=== PATIENT | female | born 1985 | race Caucasian/White ===

== ENCOUNTER 2020-12-22 07:08 | Inpatient (IN) | payer OTHER ==
[~2020-12-22] VITALS: Ht 167.6 cm; Wt 106.2 kg
[~2020-12-22 07:08] MED LIST: BUPIVACAINE/PF 0.5% ONE; EPINEPHRINE 1 MG/ML, 1ML ONE; GENTAMICIN 80 MG/2 ML ONE; THROMBIN 20,000 UNIT VIAL TP ONE; VANCOMYCIN 1,000 MG ONE
[2020-12-22 07:47] VITALS: BP 107/74
[2020-12-22] MEDS ORDERED: LACTATED RINGERS 1,000 ML IV SCH (08:00)
[2020-12-22] MEDS ORDERED: CHLORHEXIDINE 15 ML UDC PO ONE (08:00)
[2020-12-22] MEDS ORDERED: ARIP5TAB13 PO (08:22)
[2020-12-22] MEDS ORDERED: GABA600T7 PO (08:22)
[2020-12-22] MEDS ORDERED: MODA100T2 PO (08:22)
[2020-12-22] MEDS ORDERED: FENTANYL PF 250 MCG/5ML ONE ×2 (09:41→11:48)
[2020-12-22] MEDS ORDERED: MIDAZOLAM 1 MG/ML, 2ML ONE (09:41)
[2020-12-22] MEDS ORDERED: PROPOFOL 50 ML ONE ×4 (09:42→12:38)
[2020-12-22] MEDS ORDERED: OMNIPAQUE 180 MG/ML, 20ML VIAL ONE (10:29)
[2020-12-22] MEDS ORDERED: FENTANYL PF 100 MCG/2ML IV PRN (10:30)
[2020-12-22] MEDS ORDERED: ACETAMINOPHEN 325 MG TABLET PO PRN (10:30)
[2020-12-22] MEDS ORDERED: HALOPERIDOL 5 MG/ML IV PRN (10:30)
[2020-12-22] MEDS ORDERED: OXYcodone 5 MG/5 ML ORAL.SOL UDC PO PRN (10:30)
[2020-12-22] MEDS ORDERED: LABETALOL 5MG/ML, 20ML IV PRN (10:30)
[2020-12-22] MEDS ORDERED: HYDROmorphone 1 MG/ML, 1ML INJ IVPush PRN (10:30)
[2020-12-22] MEDS ORDERED: hydrALAzine 20 MG/ML, 1ML IV PRN (10:30)
[2020-12-22] MEDS ORDERED: PROMETHAZINE 25 MG/ML, 1ML IVPush PRN (10:30)
[2020-12-22] MEDS ORDERED: DIPHENHYDRAMINE 50 MG/ML, 1ML IVPush PRN ×2 (10:30→17:00)
[2020-12-22] MEDS ORDERED: MEPERIDINE/PF 25MG/0.5ML IVPush PRN (10:30)
[2020-12-22] MEDS ORDERED: BUPIVACAINE/PF 0.5% ONE (12:21)
[2020-12-22] MEDS ORDERED: EPINEPHRINE 1 MG/ML, 1ML ONE (12:21)
[2020-12-22] MEDS ORDERED: ONDANSETRON 2MG/ML, 2ML ONE (13:52)
[2020-12-22] MEDS ORDERED: SUCCINYLCHOLINE 20 MG/ML, 10ML ONE (13:52)
[2020-12-22] MEDS ORDERED: CEFAZOLIN 1,000 MG ONE (13:52)
[2020-12-22] MEDS ORDERED: GLYCOPYRROLATE 0.2MG/1ML, 5ML ONE (13:52)
[2020-12-22] MEDS ORDERED: DEXAMETHASONE 4 MG/ML, 1ML ONE (13:52)
[2020-12-22] MEDS ORDERED: PROPOFOL 10 MG/ML, 20ML ONE ×4 (13:52)
[2020-12-22] MEDS ORDERED: NEOSTIGMINE 1 MG/ML, 10ML ONE (13:52)
[2020-12-22] MEDS ORDERED: ROCURONIUM 10MG/ML,5ML ONE (13:52)
[2020-12-22] MEDS ORDERED: HYDROmorphone 2 MG/ML, 1ML ONE (13:55)
[2020-12-22] MEDS ORDERED: FENTANYL PF 100 MCG/2ML ONE (14:13)
[2020-12-22] MEDS ORDERED: ACETAMINOPHEN 650 MG/20.3 ML UDC ONE (14:14)
[2020-12-22] MEDS ORDERED: OXYcodone 5 MG/5 ML ORAL.SOL UDC ONE (14:14)
[2020-12-22] MEDS ORDERED: METHOCARBAMOL 1,000 MG in DEXTROSE 5% 100 ML IV PRN (15:00)
[2020-12-22] MEDS ORDERED: PHARMACY MAY ADJ FOR RENAL FX MC PRN (16:30)
[2020-12-22] MEDS ORDERED: morphine SULFATE 10 MG/ML, 1ML ONE (16:51)
[2020-12-22] MEDS: morphine SULFATE 10 MG/ML, 1ML IV PRN ×2 (16:53→20:41)
[2020-12-22] MEDS ORDERED: HYDROcodone/APAP 5/325 TABLET PO PRN (17:00)
[2020-12-22] MEDS ORDERED: DIPHENHYDRAMINE 25 MG CAPSULE PO PRN (17:00)
[2020-12-22] MEDS ORDERED: PROMETHAZINE 25 MG/ML, 1ML IM PRN (17:00)
[2020-12-22] MEDS ORDERED: ONDANSETRON 2MG/ML, 2ML IV PRN (17:00)
[2020-12-22] MEDS ORDERED: MAGNESIUM HYDROXIDE 8%, 30ML UDC PO PRN (17:00)
[2020-12-22] MEDS ORDERED: ACETAMINOPHEN 500 MG TABLET PO PRN (17:00)
[2020-12-22] MEDS ORDERED: BISACODYL 10 MG SUPP PR PRN (17:00)
[2020-12-22] MEDS ORDERED: DIPHENHYDRAMINE 50 MG/ML, 1ML IM PRN (17:00)
[2020-12-22] MEDS ORDERED: ACETAMINOPHEN 650 MG SUPP PR PRN (17:00)
[2020-12-22] MEDS ORDERED: CEFAZOLIN PMX 1GM/50ML 50 ML IVPB SCH (19:00)
[2020-12-22] MEDS: NS + 20MEQ KCL 1,000 ML IV SCH (19:27)
[2020-12-22] MEDS: CEFAZOLIN PMX 1GM/50ML 50 ML IVPB SCH (19:27)
[2020-12-22] MEDS: GABAPENTIN 300 MG CAPSULE PO SCH (20:41)
[2020-12-22] MEDS ORDERED: VENL150C PO (20:43)
[2020-12-22] MEDS ORDERED: TRAZ300T2 PO (20:43)
[2020-12-22 20:53] VITALS: BP 92/63
[2020-12-22] MEDS ORDERED: TRAZODONE 150MG TABLET PO SCH (21:00)
[2020-12-22] MEDS ORDERED: VENLAFAXINE 75 MG CAP ER PO SCH (22:06)
[2020-12-22] MEDS: HYDROcodone/APAP 10/325 MG TABLET PO PRN (23:43)
[2020-12-22] MEDS: CYCLOBENZAPRINE 10 MG TABLET PO PRN (23:46)
[2020-12-23 00:16] VITALS: BP 84/52
[2020-12-23 00:20] VITALS: BP 98/63
[2020-12-23 00:28] VITALS: BP 101/68
[2020-12-23] MEDS ORDERED: ENOXAPARIN 40 MG/0.4 ML SQ SCH (01:00)
[2020-12-23] MEDS: CEFAZOLIN PMX 1GM/50ML 50 ML IVPB SCH ×3 (03:00→11:22)
[2020-12-23] MEDS: HYDROcodone/APAP 10/325 MG TABLET PO PRN ×4 (04:17→17:01)
[2020-12-23] MEDS: NS + 20MEQ KCL 1,000 ML IV SCH ×2 (04:18→11:50)
[2020-12-23 04:36] VITALS: BP 124/85
[2020-12-23] MEDS: GABAPENTIN 300 MG CAPSULE PO SCH ×3 (05:40→17:01)
[2020-12-23] MEDS: morphine SULFATE 10 MG/ML, 1ML IV PRN (05:42)
[2020-12-23] MEDS ORDERED: CYCL10TA2 PO (08:18)
[2020-12-23] MEDS ORDERED: HYDR1TAB53 PO ×2 (08:18)
[2020-12-23 08:31] VITALS: BP 111/74
[2020-12-23] MEDS ORDERED: MODAFINIL 100 MG TABLET PO SCH (09:00)
[2020-12-23] MEDS ORDERED: ARIPIPRAZOLE 5 MG TABLET PO SCH (09:00)
[2020-12-23] MEDS ORDERED: SENNA/DOCUSATE TABLET PO SCH (09:00)
[2020-12-23] MEDS: CYCLOBENZAPRINE 10 MG TABLET PO PRN (11:24)
[2020-12-23] MEDS ORDERED: HYDR-3248 PO (14:59)
[2020-12-23 15:43] VITALS: BP 112/75
[2020-12-23] MEDS ORDERED: VENLAFAXINE 75 MG CAP ER PO SCH (21:00)
[2020-12-23] MEDS ORDERED: TRAZODONE 150MG TABLET PO SCH (21:00)
== END 2020-12-23 17:40 | disposition home or self-care (01) | DRG 455 ==
LOC: ORIP 07:08 → 4NE 15:47
PROVIDERS: ADMIT Neurological Surgery; ATTEND Neurological Surgery
PROC: 0SB43ZZ Excision of Lumbosacral Disc, Percutaneous Approach (ICD-10-PCS; 2020-12-22)
PROC: 01NB3ZZ Release Lumbar Nerve, Percutaneous Approach (ICD-10-PCS; 2020-12-22)
PROC: 01NR3ZZ Release Sacral Nerve, Percutaneous Approach (ICD-10-PCS; 2020-12-22)
PROC: 0SG30AJ Fusion of Lumbosacral Joint with Interbody Fusion Device, Posterior Approach, Anterior Column, Open Approach (ICD-10-PCS; 2020-12-22)
PROC: 0SG30K1 Fusion of Lumbosacral Joint with Nonautologous Tissue Substitute, Posterior Approach, Posterior Column, Open Approach (ICD-10-PCS; principal; 2020-12-22 09:30)
DX: M51.17 Intervertebral disc disorders with radiculopathy, lumbosacral region (principal); M48.07 Spinal stenosis, lumbosacral region; M51.26 Other intervertebral disc displacement, lumbar region; M51.36 Other intervertebral disc degeneration, lumbar region; M53.2X7 Spinal instabilities, lumbosacral region
CPT/HCPCS: 36415; 72100; S0020; 86850; 86900; 95938; 95941; C1713; G0378; J0171; J0690; J1100; J1170; J1650; J2250; J2405; J2704; J2710; J3010; J3370; J3480; Q9965; C1762; C1781; J0330; J1580; J2270; J2800; J7120